=== PATIENT | female | born 1955 | race Caucasian/White ===

== ENCOUNTER 2019-01-28 07:52 | Emergency (ER) | payer OTHER, SELFPAY ==
[2019-01-28 07:53] VITALS: BP 153/92; PULSE 104; RESP 16; TEMP 36.4; O2SAT 96; BMI 18.3
[2019-01-28] MEDS: Orphenadrine 60 MG/2 ML Ampul IM (09:16)
[2019-01-28] MEDS: Ketorolac 60 MG/2 ML Vial IM (09:16)
[2019-01-28] MEDS: Triamcinolone Acetonide 40 MG/ML Vial IM (09:16)
--- NOTE | 2019-01-28 09:47 | ED.DCSUM_ITS ---
- ER Visit Summary Date of Service: 01/28/19 Chief Complaint: Pain History of Present Illness: The patient is a 63 F with low back pain. The pain starts in her left buttock and radiates down her left lower extremity. She has had this before. She has a history of cortisone injections. She denies any new inciting events. Nothing seems to make it worse. Nothing seems to make it better. No other associated symptoms. Physical Examination: Afebrile and vital signs unremarkable. Back is nontender. Straight leg raise negative. Good strength and sensation. Pulses strong and equal. Skin appears normal. Test Results: None indicated. Patient had an outpatient x-ray and MRI. Emergency Department Course and Treatment: Patient was treated with Kenalog, Toradol, Norflex. On reevaluation, she was feeling better. Continue naproxen and Flexeril at home. Follow-up with her outpatient physicians. Treatment Plan: As above Disposition: Discharge Impression: 1. Left sciatica This note was generated with [employer] dictation software. It may contain incorrect words, spelling, and punctuation that were not noted in review of the chart prior to signing ED Disposition - Plan for ED Patient: Referrals: Ever Diop [Primary Care Provider] -
--- NOTE | 2019-01-28 09:50 | ED.DEP ---
ED Disposition - Plan for ED Patient: Instructions: BACK PAIN w/ SCIATICA Prescriptions: cycloBENZAPRine HCl [Flexeril] 10 mg PO TID PRN #20 tab PRN Reason: Muscle Spasm Prescription Printed Naproxen [Naprosyn] 500 mg PO BID PRN #20 tab Prescription Printed Referrals: Ever Diop [Primary Care Provider] -
[2019-01-28 09:58] VITALS: BP 147/90; PULSE 92; RESP 16; O2SAT 96
--- NOTE | 2019-01-28 10:00 | ED.RN ---
DISCHARGE INSTRUCTIONS GIVEN TO AND REVIEWED WITH PATIENT, PATIENT DENIES QUESTIONS OR CONCERNS AND VOICES UNDERSTANDING OF DISCHARGE INSTRUCTIONS. PT AMBULATES OUT OF ROOM WITH STEADY GAIT.
== END 2019-01-28 10:00 | disposition home or self-care (01) ==
PROVIDERS: Emergency Provider Emergency Medicine; Family Provider Family Medicine; PCP Family Medicine
DX: M54.42 Lumbago with sciatica, left side (principal); Z72.0 Tobacco use
CPT/HCPCS: 96372; 99282

== ENCOUNTER 2020-06-08 08:39 | Emergency (ER) | payer OTHER, SELFPAY ==
[2020-06-08 08:40] VITALS: BP 143/99; PULSE 88; RESP 17; TEMP 36.4; O2SAT 95; BMI 20.1
--- NOTE | 2020-06-08 09:06 | RAD_ITS ---
STUDY: X-RAY - LEFT SHOULDER REASON FOR EXAM: Female, 64 years old. Pt states fell on ice on Saturday, left arm pain and swelling, difficulty moving left arm TECHNIQUE: 3 view(s) of the shoulder. COMPARISON: None. FINDINGS: Normal glenohumeral articulation. Normal acromioclavicular joint. Normal acromion. Comminuted nondisplaced fracture of the surgical neck of the humerus with extension to the greater tuberosity. The soft tissue structures are unremarkable. Normal visualized pulmonary apex. RAD/Shoulder min 2 Views IMPRESSION: Comminuted nondisplaced fracture of the surgical neck of the humerus with extension to the greater tuberosity. Electronically Signed: Can Newby MD at 9:52 EST , Service support ,
--- NOTE | 2020-06-08 09:24 | CT_ITS ---
STUDY: CT LEFT UPPER EXTREMITY / HUMERUS REASON FOR EXAM: Female, 64 years old. LEFT SHOULDER FX, FELL ON ICE 3 DAYS AGO RADIATION DOSAGE (If Supplied By Facility): CTDIvol = ( 24.58 ) mGy, DLP = ( 560.60 ) mGycm TECHNIQUE: High resolution transaxial imaging was performed without the administration of intravenous contrast material. Multiplanar coronal and sagittal images were reformatted. Individualized dose optimization techniques were used for this CT. COMPARISON: Comparison is made with prior radiographs done earlier in the day. FINDINGS: Is evidence of a comminuted nondisplaced fracture of the surgical neck of the proximal humerus with extension to the greater tuberosity. Normal visualized muscles. Normal visualized neurovascular bundles. Soft tissue swelling. CT/Extremity Upper without Contra IMPRESSION: There is a nondisplaced comminuted fracture of the surgical neck of the proximal humerus with extension into the greater tuberosity and with overlying soft tissue swelling. Electronically Signed: Can Newby MD at 10:20 EST , Service support ,
--- NOTE | 2020-06-08 09:53 | ED.VIS.GEN ---
History of Present Illness Chief Complaint: Fall Informant: Patient Narrative: Patient states that 2 days ago she slipped on the ice striking her head on the ground and injuring the left shoulder. No loss of consciousness. No persistent headache or neurologic deficits. No nausea vomiting. She states that the left shoulder is swollen and painful and she cannot move it. She has been icing it hoping that it would get better but it has not so she came in today. She does not take any blood thinners. Past Medical History - Allergies and Home Meds Allergies/Adverse Reactions: Allergies meperidine [From Demerol] Adverse Reaction (Verified 06/08/20 08:40) Vomiting Penicillins Adverse Reaction (Verified 06/08/20 08:40) parents are allergic Surgical History: noncontributory Lives: Spouse/ Significant Other Smoking Status: Former smoker Drugs: None Review of Systems General: Denies: Chills, Fever, Sweats Eyes: Denies: Visual changes - bilaterally, Diplopia ENT: Denies: Rhinorrhea, Sore throat Cardiovascular: Denies: Chest pain, Palpitations Respiratory: Denies: Dyspnea, Cough, Dyspnea on exertion Gastrointestinal: Denies: Abdominal pain, Nausea, Vomiting, Diarrhea, Melena, Hematochezia Genitourinary: Denies: Dysuria, Hematuria, Frequency Musculoskeletal: Reports: Swelling, Extremity Pain. Denies: Back pain Skin: Reports: Abrasions. Denies: Rash, Wounds Neurological: Denies: Headache, Weakness, Numbness Physical Exam Vital Signs/Narrative: Vital Signs Temp Pulse Resp BP Pulse Ox 06/08/20 08:40 97.5 F L 88 17 143/99 H 95 Inital Vital Signs reviewed: Yes General: Well nourished, Well developed, No Acute Distress Head: Normocephalic, Trauma - Abrasions of the left forehead. No bony depression. Eyes: Perrl, EOMI ENT: Moist mucous membranes, No rhinorrhea Neck: Supple, Nontender Cardiovascular: Regular rate, Regular rhythm, No murmurs Respiratory: No distress, CTA bilaterally, Chest nontender Abdomen: Soft, Nontender, Nondistended, Normal bowel sounds Back: Nontender, Normal Inspection Extremities: Tenderness - There is significant swelling and ecchymosis of the left shoulder and left upper arm. Limited range of motion due to pain. Neurovascular intact. Skin: Normal color, No rash Neurological: Alert, Oriented x3, Cranial nerves II-XII grossly intact, Normal Strength, Normal Sensation Psychological: Normal affect, Normal Mood Diagnostic/Tx/Re-eval Clinical Impression(s) from Imaging Studies Shoulder X-Ray 06/08/20 09:06 IMPRESSION: Comminuted nondisplaced fracture of the surgical neck of the humerus with extension to the greater tuberosity. Electronically Signed: Can Newby MD at 9:52 EST , Service support , Upper Extremity CT 06/08/20 09:24 IMPRESSION: There is a nondisplaced comminuted fracture of the surgical neck of the proximal humerus with extension into the greater tuberosity and with overlying soft tissue swelling. Electronically Signed: Can Newby MD at 10:20 EST , Service support , - Medical Decision Making My interpretation of the films of the left shoulder are in acute minimally displaced comminuted proximal humerus fracture with extension into the greater tuberosity. CT was obtained for better characterization of the fracture pattern. I spoke with on-call orthopedic surgeon Dr. Jose. I spoke with Dr. Santos from the [facility] and he will see the patient tomorrow and [facility]. ED Disposition - Plan for ED Patient: Disposition: Home or Assisted Living Diagnosis: Left scapula fracture, Facial abrasion, Fall Prescriptions: Oxycodone HCl/Acetaminophen [Percocet 5/325] 1 tab PO Q6H PRN PRN 3 Days #12 tab PRN Reason: Pain Prescription Printed Additional Instructions: Please call Dr. Santos's office today to arrange follow-up tomorrow at the [place] location per him. [phone] Please take your images with you.
--- NOTE | 2020-06-08 10:31 | NURSING ---
CALLED [facility] FOR DR. TELEPHONE SEX WORKER DR IS DR JOHNSON
[2020-06-08] MEDS: morphine 8 MG/ML Syringe IM (10:46)
[2020-06-08 10:55] VITALS: BP 139/74; PULSE 84; RESP 15; O2SAT 96
== END 2020-06-08 10:57 | disposition home or self-care (01) ==
PROVIDERS: Emergency Provider Emergency Medicine; PCP Family Medicine
DX: S42.102A Fracture of unspecified part of scapula, left shoulder, initial encounter for closed fracture (principal); S00.81XA Abrasion of other part of head, initial encounter; Z87.891 Personal history of nicotine dependence; W00.0XXA Fall on same level due to ice and snow, initial encounter
CPT/HCPCS: 73030; 73200; 96372; 99283

== ENCOUNTER 2020-06-23 18:12 | Emergency (ER) | payer OTHER, SELFPAY ==
[2020-06-23 18:13] VITALS: BP 131/72; PULSE 107; RESP 16; TEMP 36.1; O2SAT 92; BMI 19.3
--- NOTE | 2020-06-23 19:32 | ED.DCSUM_ITS ---
- ER Visit Summary Date of Service: 06/23/20 Chief Complaint: Surgical wound History of Present Illness: The patient is a 64 F who had open repair of her left proximal humerus fracture by Dr. Acevedo [facility] earlier today. She presents for bleeding. The bleeding is soaking through her dressing. She has no other complaints. She has some numbness but this has been constant since she had a nerve block. Physical Examination: Afebrile and vital signs unremarkable. Wound is soaked with dark blood. Upon removal of the dressing, there is some oozing through the surgical wound at the dependent area of the wound. There is no pulsatile bleeding. She is vascularly intact distally. Test Results: None indicated Emergency Department Course and Treatment: Patient was discussed with the on- call partner for her surgeon. Advised trying a dressing with a small amount of pressure and observing the patient. They did not feel the need to evaluate or observe the patient overnight. The bleeding has stopped. If she does have recurrent bleeding, she should follow-up with the on-call physician. Treatment Plan: As above Disposition: Discharge Impression: Attention to surgical site left arm This note was generated with [employer] dictation software. It may contain incorrect words, spelling, and punctuation that were not noted in review of the chart prior to signing ED Disposition - Plan for ED Patient: Referrals: Ever Diop DO [Primary Care Provider] -
--- NOTE | 2020-06-23 19:34 | ED.DEP ---
ED Disposition - Plan for ED Patient: Instructions: ED Post Op Wound Check, Bleeding Additional Instructions: follow up with your ortho surgeon
== END 2020-06-23 19:55 | disposition home or self-care (01) ==
PROVIDERS: Emergency Provider Emergency Medicine; PCP Family Medicine
DX: Z48.01 Encounter for change or removal of surgical wound dressing (principal); Z87.891 Personal history of nicotine dependence
CPT/HCPCS: 99282

== ENCOUNTER 2020-07-15 14:36 | Outpatient (RCR) | payer OTHER, SELFPAY | END 2020-09-20 23:59 | LOC: IMMUN 14:36 | PROVIDERS: Visit Provider Family Medicine | DX: Z23 Encounter for immunization (principal) | CPT/HCPCS: 0001A; 0002A; 91300 ==

== ENCOUNTER 2024-04-22 11:21 | Emergency (ER) | payer MEDICARE, SELFPAY ==
[2024-04-22 11:21] VITALS: BP 161/80; PULSE 83; RESP 16; TEMP 36.8; O2SAT 97; BMI 19.5
--- NOTE | 2024-04-22 11:52 | CT_ITS ---
HISTORY: trauma. TECHNIQUE: Multiple axial images were obtained of the head without intravenous contrast. A radiation dose optimization technique was used for this scan. 243 images. COMPARISON: None. FINDINGS: BRAIN PARENCHYMA: Multiple foci and zones of low attenuation in the bilateral cerebral white matter compatible with chronic small vessel ischemic gliosis. No acute intra-axial hemorrhage identified. CSF SPACES: Mild volume loss. No midline shift or other significant mass effect. No acute extra-axial hemorrhage seen. OTHER: Intact calvarium. Left frontal scalp laceration No significant air fluid levels in the paranasal sinuses or mastoid air cells. Unremarkable orbits. CT/Brain/Head without Contrast IMPRESSION: No acute intracranial process identified. Mild chronic involutional and white matter changes. Left frontal scalp laceration. Electronically Signed: Lucia Verde MD at 12:39 EST ,
--- NOTE | 2024-04-22 11:53 | EDS_ITS ---
HPI History of Present Illness Chief Complaint: Laceration Informant: patient and spouse/S.O. Narrative Narrative: 68-year-old female presenting to the emergency room with scalp and forehead laceration. Patient states that last night around 1700 hrs. she bent over struck her head on a car door. She continued on her trip and returned home taking a shower this morning. She is unsure of her last tetanus. She notes a frontal headache. No seizure or syncope or neurologic deficits noted by patient. Tetanus Immunization: Unknown PFSH [facility] Home Medications ?Medication ?Instructions ?Recorded ?Last Taken ?Type Ropinirole Hcl [Requip] 0.25 mg PO QHS 06/23/20 Unknown History gabapentin 100 mg capsule 100 mg PO TIDCM 06/23/20 Unknown History oxycodone-acetaminophen 5 mg-325 1 ea PO PRN PRN Pain Score 1-10 06/23/20 Unknown History mg tablet tizanidine 2 mg tablet 2 mg PO TID 06/23/20 Unknown History cephalexin 500 mg capsule 500 mg PO TID 5 days #15 CAPSULES 04/22/24 Unknown Rx Allergy/AdvReac Type Severity Reaction Status Date / Time meperidine (From Demerol) AdvReac Vomiting Verified 04/22/24 11:22 Penicillins AdvReac parents Verified 04/22/24 11:22 are allergic Social History Smoking Status: Light Smoker (<10/day) ROS [facility] ED Constitutional Constitutional ED: Denies chills or weight loss Eyes Eyes: Denies change in vision or diplopia ENT ENT ED: Denies ear pain, rhinorrhea or sore throat Cardiovascular Cardiovascular: Denies chest pain, orthopnea, palpitations or racing heartbeat Respiratory/Chest Respiratory/Chest: Denies cough, dyspnea or orthopnea Gastrointestinal Gastrointestinal: Denies abdominal pain, diarrhea, nausea or vomiting Genitourinary Genitourinary ED: Denies dysuria, hematuria or urinary frequency Musculoskeletal Musculoskeletal: Denies arthralgias, back pain, myalgias or neck pain Integumentary Reports other Details: Forehead and scalp laceration ; Denies abscess or rash Neurologic Neurologic: Reports headache(s); Denies weakness Psychiatric Psychiatric: Denies anxiety, depression, suicidal ideation or suicidal thoughts Endocrine Endocrinology: Denies polydipsia, polyphagia or polyuria Allergic/Immunologic Allergic/Immunologic ED: Denies mouth swelling, tongue swelling or urticaria EXAM Physical Exam Const Vital Signs: 04/22/24 11:21 04/22/24 13:21 04/22/24 13:37 Temperature 98.3 F 98.3 F Temperature Source Temporal Pulse Rate 83 60 60 Respiratory Rate 16 14 14 Blood Pressure 161/80 H 161/80 H Blood Pressure Mean 107 107 Pulse Ox 97 97 97 Oxygen Delivery Method Room Air Room Air Positive well nourished and well developed General Appearance ED: well developed HEENT Reports normocephalic and moist mucous membranes HEENT Narrative: There is a full-thickness L-shaped linear laceration to the left forehead extending into the scalp line. Neurovascular appears intact. The wound appears clean. No palpable bony depressions are noted. Eyes PERRL and EOMs intact bilaterally Neck no lymphadenopathy, supple and no JVD Resp normal respiratory effort and clear to auscultation bilaterally Cardio regular rate, regular rhythm and no murmurs GI normal to inspection, nondistended, normoactive bowel sounds and non-tender Palpation: soft Back/Spine no CVA tenderness and normal ROM Extremity normal to inspection General Extremety ED: Negative for edema General Extremity: Negative for edema Neuro oriented x3 and CN's II-XII intact bilaterally Sensorium / Orientation: alert Motor Exam: strength 5/5 throughout Psych mental status grossly normal Mood & Affect: Negative for depressed or tearful Skin no rashes or lesions noted and no wounds MDM MDM MDM Narrative Medical decision making narrative: Differential diagnosis includes but not limited to skull fracture infection intracranial hemorrhage/hematoma concussion laceration CT of the brain was obtained and is negative for acute intracranial hemorrhage/hematoma or for skull fracture. Wound was locally anesthetized using 1% lidocaine washed with Shur-Clens irrigated and explored. No foreign bodies were noted. Wound was closed using a total of 11 simple interrupted 4-0 Ethilon sutures. Local wound care discussed with patient. I will be placing her on prophylactic Keflex given the delayed presentation. Patient is comfortable with the plan return if worsening or concerns History & Record Review Discussion w/independent historian: Patient and Significant other Radiography Diagnostic Testing: Clinical Impression(s) from Imaging Studies Brain CT 04/22/24 11:52 IMPRESSION: No acute intracranial process identified. Mild chronic involutional and white matter changes. Left frontal scalp laceration. Electronically Signed: Lucia Verde MD at 12:39 EST , Discharge Plan Triage Chief Complaint: Laceration ED Provider: Lamberto Whitney Dx/Rx/DC Orders Clinical Impression: Facial laceration, Laceration of scalp Instructions: ED Laceration, All Closures Prescriptions: New cephalexin 500 mg capsule 500 mg PO TID 5 Days Qty: 15 0RF No Action tizanidine 2 MG tablet 2 mg PO TID oxycodone-acetaminophen 1 EACH tablet 1 ea PO PRN PRN (Reason: Pain Score 1-10) gabapentin 100 MG capsule 100 mg PO TIDCM Ropinirole Hcl [Requip] 0.25 MG tablet 0.25 mg PO QHS Primary Care Provider: Care Physician,No Primary Referrals: Care Physician,No Primary [Primary Care Provider] - Clinic,NOW [Non-Staff] - 7 Days for suture removal Print Language: Canadian Disposition Disposition: Home, Self Care Discharge Date/Time: 04/22/24 13:37
[2024-04-22] MEDS: Diphth,Pertuss(Acell),Tet Vac 0.5 ML Vial IM (12:00)
[2024-04-22] MEDS: Lidocaine 1% (20 ml mdv) 20 ML Vial INFILT (12:02)
[2024-04-22 13:21] VITALS: PULSE 60; RESP 14; O2SAT 97
[2024-04-22 13:37] VITALS: BP 161/80; PULSE 60; RESP 14; TEMP 36.8; O2SAT 97
== END 2024-04-22 13:37 | disposition home or self-care (01) ==
PROVIDERS: Emergency Provider Emergency Medicine; Visit Provider Emergency Medicine
DX: S01.81XA Laceration without foreign body of other part of head, initial encounter (principal); S01.01XA Laceration without foreign body of scalp, initial encounter; W22.09XA Striking against other stationary object, initial encounter; Z88.0 Allergy status to penicillin; F17.200 Nicotine dependence, unspecified, uncomplicated
CPT/HCPCS: 12014; 70450; 90715; 99283

== ENCOUNTER → 2024-08-24 | Outpatient (CLI) | payer MEDICARE, SELFPAY ==
--- NOTE | 2024-08-24 13:28 | RAD_ITS ---
PROCEDURE: L/S SPINE COMP/W BENDING VIEWS 08/24/2024 REASON FOR EXAM: PAIN TECHNIQUE: 7 views, AP, bilateral oblique, lateral, flexion-extension, coned-down L5-S1 view COMPARISON: None available FINDINGS: 5 [id number] lumbar vertebral body types identified. Osteopenia. No fracture or malalignment. Mild degenerative changes L2 through L5 with appearance of possible bilateral foraminal narrowing L4-5 and L5-S1. Aortoiliac atherosclerotic changes. Facet hypertrophic degenerative changes. No evidence of spondylolysis. No evidence of instability. A few dilated small bowel loops at the left of midline lower abdomen with fluid levels may represent focal ileus, nonspecific. RAD/L/S Spine Comp/w Bending Views IMPRESSION: No fracture or malalignment. Multilevel spondylosis/discogenic change. A few dilated small bowel loops at the left of midline lower abdomen with fluid levels may represent focal ileus, nonspecific. Reading Location: [id number]
== END | disposition home or self-care (01) ==
LOC: MTRAD 13:26
PROVIDERS: Referring Provider Physical Medicine & Rehabilitation Pain Medicine; Visit Provider Physical Medicine & Rehabilitation Pain Medicine
DX: M51.369 Other intervertebral disc degeneration, lumbar region without mention of lumbar back pain or lower extremity pain (principal)
CPT/HCPCS: 72114

== ENCOUNTER 2024-12-07 09:25 | Emergency (ER) | payer MEDICARE, SELFPAY ==
[2024-12-07 09:26] VITALS: BP 159/75; PULSE 109; RESP 18; TEMP 36.5; O2SAT 97; BMI 18.5
--- NOTE | 2024-12-07 11:39 | ED.VIS.BACK ---
HPI History of Present Illness Chief Complaint: Back Detail of Chief Complaint: Back pain with radiation right leg in a L3 distribution Informant: patient Onset/Context/Timing Onset: Weeks (1 week ago) Context: Sudden Onset Chronic pain exacerbated by: Movement, walking Injury: - (None) Timing: Continuous Quality: - (Pain) Location: Lumbar and Right Leg Current Severity: Mild Maximum Severity: Severe Worsened by: improves with Movement, Ambulation, Bending and Lifting Relieved by: Nothing Associated Symptoms Associated Symptoms: Radiation to Right Leg (L3) and - (Denies saddle paresthesia or anesthesia. Denies recent dental procedure. Patient apparently had an ablation done.); Negative for Numbness, Tingling, Radiation to Left Leg, Fever, Abdominal Pain, Dysuria, Unable to Ambulate, Unable to Transfer, Urinary Retention, Urinary Incontinence, Constipation or Fecal Incontinence Narrative Narrative: Patient is a 69-year-old woman. She is followed by Dr. Altamirano pain management [facility] in [place]. She is presently on gabapentin. She reports foot drop. She reports pain that is in the distribution of L3 but stops at her knee medially. She denies buckling of her knees going up or down steps. She denies bowel or bladder dysfunction. She denies saddle paresthesia or anesthesia. There is no history of trauma. She denies fever, chills night sweats. Denies weight loss. She denies urologic symptoms. She has not noted any swelling of her leg or discoloration of her leg. Prior similar symptoms: With Prior Back Pain Recent Illness/Hospitalization: Yes PFSH [facility] Home Medications ?Medication ?Instructions ?Recorded ?Last Taken ?Type tizanidine 2 mg tablet 2 mg PO TID 06/23/20 Unknown History gabapentin 300 mg capsule 300 mg PO TID 12/07/24 Unknown History hydrocodone-acetaminophen 5-325mg 1 tab PO Q6H PRN PRN Pain 3 days 12/07/24 Unknown Rx 5mg-325mg #10 TABLETS ropinirole 0.25 mg tablet 0.25 mg PO DAILY 12/07/24 Unknown History Allergy/AdvReac Type Severity Reaction Status Date / Time meperidine (From Demerol) AdvReac Vomiting Verified 04/28/24 11:50 Penicillins AdvReac parents Verified 04/28/24 11:50 are allergic Social History Smoking Status: Light Smoker (<10/day) ROS ROS ED Constitutional Constitutional ED: Denies chills, fever(s), subjective or sweats Eyes Eyes: Denies blurry vision or change in vision ENT ENT ED: Denies ear pain, rhinorrhea or sore throat Cardiovascular Cardiovascular: Denies chest pain or palpitations Respiratory/Chest Respiratory/Chest: Denies dyspnea or dyspnea on exertion Gastrointestinal Gastrointestinal: Denies abdominal pain, constipation, melena, nausea or vomiting Genitourinary Genitourinary ED: Denies dysuria, hematuria or urinary frequency Musculoskeletal Musculoskeletal: Reports back pain; Denies arthralgias, myalgias or neck pain Integumentary Denies rash Neurologic Neurologic: Denies paresthesias or weakness Psychiatric Psychiatric: Denies anxiety or depression Hematologic/Lymphatic Hematologic/Lymphatic: Denies easy bruising EXAM Physical Exam Const Vital Signs: 12/07/24 09:26 Temperature 97.7 F L Temperature Source Temporal Pulse Rate 109 H Respiratory Rate 18 Blood Pressure 159/75 H Blood Pressure Mean 103 Pulse Ox 97 Oxygen Delivery Method Room Air Positive well nourished and well developed Constitutional Narrative: Vital signs are back for elevated blood pressure and heart rate. General Appearance ED: well developed; Negative for pallor HEENT Reports moist mucous membranes HEENT Narrative: Head is atraumatic no cephalic. Ears normal. Eyes PERRL and EOMs intact bilaterally Neck No no lymphadenopathy, No supple and No no JVD Resp normal respiratory effort and clear to auscultation bilaterally Cardio regular rate, regular rhythm, S1 normal heart sound, S2 normal heart sound and no murmurs GI normal to inspection, nondistended, normoactive bowel sounds, soft to palpation, non-tender and non-distended Back/Spine normal to inspection and no thoracic nor lumbar tenderness Cervical Spine: Negative for cervical spine tenderness Thoracic Spine / Upper Back: Negative for paraspinal muscle tenderness Lumbar Spine / Lower Back: Negative for straight leg raise positive - left Extremity normal to inspection and no clubbing, cyanosis or edema Neuro oriented x3 and no sensory deficits noted Neuro Narrative: Straight leg test is negative right and left. Femoral stretch test is negative right. Gait was observed. She has a limp but no foot drop. Is able to walk on heels and toes. Able to perform 1 legged squat right and left. Sensorium / Orientation: alert Deep Tendon Reflexes: Rt Patellar (L4): 2+, Lt Patellar (L4): 2+, Rt Ankle (S1): 2+ and Lt Ankle (S1): 2+ Deep Tendon Reflexes Back: Rt Patellar (L4): 2+, Lt Patellar (L4): 2+, Rt Ankle (S1): 2+ and Lt Ankle (S1): 2+ Plantar Reflex: Downgoing: bilateral (There is no clonus at the ankles.) Psych mental status grossly normal Skin no rashes or lesions noted and no wounds General Skin Exam: Negative for jaundice or pallor MDM MDM MDM Narrative Medical decision making narrative: Patient's description is consistent in the L3 distribution pain. There is no neurologic objective findings. Plan is to medicate with ketorolac and Decadron initially. She had no improvement on reassessment at 1134. In light of this she was ordered Dilaudid since she is able to get a ride home. She was going to call for her ride. I instructed her to wait to see if the medicine would help. Treatment and Re-Evaluation Narrative: Patient was reassessed at 1151. Her pain did improve. Since she is not in pain management will treat with opiate analgesia for 3 days. My opinion this is musculoskeletal Discharge Plan Triage Chief Complaint: Back ED Provider: Markie Barraza Dx/Rx/DC Orders Clinical Impression: Low back pain radiating to right leg, Elevated blood-pressure reading without diagnosis of hypertension, Tachycardia Instructions: ED Back Pain (Acute or Chronic) Prescriptions: New hydrocodone-acetaminophen 5-325 mg tablet 1 tab PO Q6H PRN PRN (Reason: Pain) 3 Days Qty: 10 0RF No Action tizanidine 2 MG tablet 2 mg PO TID ropinirole 0.25 mg tablet 0.25 mg PO DAILY gabapentin 300 mg capsule 300 mg PO TID Primary Care Provider: Care Physician,No Primary Referrals: Care Physician,No Primary [Primary Care Provider] - Activity Restrictions/Additional Instructions: If notes no improvement in 3 days that recommend contacting Dr. Altamirano. Otherwise follow-up with your primary care doctor. Print Language: Mosotho Disposition Disposition: Home, Self Care
[2024-12-07] MEDS: HYDROmorphone 0.5 MG/0.5 ML SYRINGE IV (12:39)
[2024-12-07 13:26] VITALS: RESP 16
[2024-12-07 13:30] VITALS: BP 159/75; PULSE 72; RESP 16; TEMP 36.5; O2SAT 97
== END 2024-12-07 13:30 | disposition home or self-care (01) ==
PROVIDERS: Emergency Provider Emergency Medicine; Visit Provider Emergency Medicine
DX: M54.50 Low back pain, unspecified (principal); R00.0 Tachycardia, unspecified; R03.0 Elevated blood-pressure reading, without diagnosis of hypertension; G89.29 Other chronic pain
CPT/HCPCS: 96374; 96375; 99283; A4216

== ENCOUNTER → 2024-12-30 | Outpatient (CLI) | payer MEDICARE, SELFPAY ==
--- NOTE | 2024-12-30 09:21 | MRI_ITS ---
PROCEDURE: SPINE LUMBAR (ROUTINE) 12/30/2024 REASON FOR EXAM: LUMBAR RADICULOPATHY TECHNIQUE: Procedure Code: MRISPL Modality: MR Procedure: SPINE LUMBAR (ROUTINE) FINDINGS: Vertebrae: Preserved in height and signal. Alignment: Normal. Conus Medullaris: Unremarkable. L1-2: No foraminal or canal stenosis. L2-3: Disc bulge. Facet joint arthropathy. Mild inferior bilateral foramina stenosis. Mild canal stenosis. L3-4: Disc bulge. Facet joint arthropathy. No significant foraminal or canal stenosis. L4-5: Disc bulge. Facet joint arthropathy. Left facet joint effusion. Moderate left foramina stenosis with abutment upon the exiting left L4 nerve. Mild right foramina stenosis.. No canal stenosis. L5-S1: Disc bulge. Facet joint arthropathy. No foraminal or canal stenosis. Sacrum: Unremarkable. 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 No significant canal stenosis. Multilevel facet joint arthropathy as detailed. Reading [facility]
== END | disposition home or self-care (01) ==
PROVIDERS: Referring Provider Registered Nurse Maternal Newborn; Visit Provider Registered Nurse Maternal Newborn
DX: M54.16 Radiculopathy, lumbar region (principal)
CPT/HCPCS: 72148